=== PATIENT | female | born 1935 ===

== ENCOUNTER 2021-12-22 16:11 | Inpatient (IN) ==
[2021-12-22] MEDS ORDERED: traZODone HCL 50 MG TABLET PO PRN (17:28)
[2021-12-22] MEDS ORDERED: HYDROmorphone 1 MG/ML SYRINGE IV PRN (17:28)
[2021-12-22] MEDS ORDERED: oxyCODONE HCL 5 MG TABLET PO PRN (17:28)
[2021-12-22] MEDS ORDERED: ONDANSETRON 4 MG/2 ML VIAL IV PRN (17:28)
[2021-12-22] MEDS ORDERED: IPRATROPIUM/ALBUTEROL 3 ML AMPUL.NEB NEB PRN ×2 (17:28→22:22)
[2021-12-22] MEDS ORDERED: ACETAMINOPHEN 325 MG TABLET PO PRN (17:28)
[2021-12-22] MEDS ORDERED: hydrALAZINE 20 MG/ML VIAL IV PRN (17:32)
--- NOTE | 2021-12-22 17:42 | Internal Med History&Physical ---
HPI History of Present Illness Patient information: Note initiated : 12/22/21 at 5:32 pm Service Date, if different from initiated Date: [] Patient: Smita Munson 86 y/o F admitted on 12/22/21 for Left Femur Fracture. Chief Complaint: [fall] Chief complaint: fall History of present illness: Ms. Munson is a 86 year old F history of ostial myelitis, presenting with 4 with a left hip fracture. Earlier this afternoon when she was doing yard work in her garden, she misstepped and lost her balance and fell landing forward. She denies any chest pain or shortness of breath or palpitations. She denies any loss of consciousness. She is complaining of 6 out of 10, constant, sharp and throbbing pain of her left knee with radiations to the left thigh. Patient is not on any anticoagulants or antiplatelets. She was brought to outside ER where imaging was performed and suggested a left hip fracture. Admission request was made due to bed availability and availability of orthopedic surgeons. Patient will be taken to the OR by Dr. Munson orthopedic surgeons later this evening. Constitutional Constitutional: Absent chills, excessive sweating, fatigue, fever(s) or weakness EENT Eyes: Absent blurry vision, change in vision, loss of vision or other visual disturbances Ears: Absent decreased hearing or tinnitus Nose, mouth and throat: Absent abnormal hearing, dry mouth, headache(s), nasal congestion or sore throat Cardiovascular Cardiovascular: Absent chest pain, chest pain at rest, edema, irregular heart rhythm or palpatations Respiratory Respiratory: Absent cough, dyspnea or wheezing Gastrointestinal Gastrointestinal: Absent abdominal pain, constipation, diarrhea, nausea or vomiting Musculoskeletal Musculoskeletal: Absent back pain, deformity, limited range of motion, muscle cramps, muscle weakness or numbness Additional comments: Left thigh and knee pain Integumentary Integumentary: Absent lesions, rash or wounds Neurological Neurological: Absent focal weakness, headache(s) or numbness Psychiatric Psychiatric: Absent anxiety, depression or hallucinations PFSH PFSH All Active Problems (Updated 12/22/21 @ 17:41 by Rudy Camarillo MD) Osteoarthritis (Acute) Closed left hip fracture (Acute) MEDS/ALLERGIES Home Medications and Allergies Allergies Allergy/AdvReac Type Severity Reaction Status Date / Time diazepam [From Valium] Allergy Severe Difficulty Verified 12/22/21 17:29 Breathing ofloxacin [From Floxin] Allergy Severe Difficulty Verified 12/22/21 17:29 Breathing Penicillins AdvReac Intermediate Rash Verified 12/22/21 17:21 EXAM Constitutional Vitals: Temp Pulse Resp BP Pulse Ox 35.9 C L 95 H 14 144/78 95 12/22/21 17:22 12/22/21 17:22 12/22/21 17:22 12/22/21 17:22 12/22/21 17:22 General appearance: cooperative and no acute distress Head Head exam: Present atraumatic and normocephalic Eye Eye exam: Present EOMI and PERRL ENT ENT exam: Present mucous membranes moist, normal exam and normal external ear exam Neck Neck exam: Present normal inspection; Absent lymphadenopathy, tenderness or thyromegaly Respiratory Respiratory exam: Absent accessory muscle use, respiratory distress or wheezes Cardiovascular Cardiovascular exam: Present normal rate and rhythm; Absent JVD GI/Abdominal GI/Abdominal exam: Present normal bowel sounds and soft; Absent organomegaly or tenderness Extremities Exam Extremities exam: Present normal capillary refill and tenderness; Absent full ROM or normal inspection Additional comments: Left thigh and knee tenderness to palpation Active and passive ROMs limited by pain Neurological Exam Neurological exam: Present alert, CN II-XII intact and oriented X3; Absent motor sensory deficit Psychiatric Psychiatric exam: Present normal affect and normal mood; Absent anxious or depressed Skin Skin exam: Present dry and intact A/P Assessment and plan (1) Closed left hip fracture: Status: Acute (2) Osteoarthritis: Status: Acute Narrative A/P Narrative: Assessment and Plans: 1. Left hip fracture, closed, initial encounter: Inpatient med surg Consult orthopedic surgeon Dr. Munson for surgical fixation, OR time tonight NPO with IV fluid for now No anticoagulation BEFORE surgery; anticoagulation after surgery when cleared by surgeon Bedrest Oxycodone PRN moderate pain Dilaudid IV PRN severe pain Physical therapy 2. h/o osteoarthritis: Oxycodone PRN moderate pain Dilaudid IV PRN severe pain Physical therapy GI ppx: not currently indicated DVT ppx: SCDs Code status: Full Prognosis: stable Disposition: Inpatient med surg; PT Time Spent With Patient Time: Total time spent is greater than 50% in coordination of care (as documented) at patient's floor/unit and/or counseling patient: Total time spent with greater than 50% in coordination of care (as documented) at patient's floor/unit and/or counseling patient:: 50 - 70 minutes
--- NOTE | 2021-12-22 18:14 | Orthopedic History & Physical ---
HPI History of Present Illness Patient information: Note initiated : 12/22/21 at 6:08 pm Service Date, if different from initiated Date: [] Patient: Smita Munson 86 y/o F admitted on 12/22/21 for Left Femur Fracture. Chief Complaint: [Left knee pain status post ground level mechanical fall] Chief complaint: Left knee pain status post ground level mechanical fall History of present illness: Ms. Munson is a 86 year old Female who was working in the garden outside her [place] home when she stumbled on some uneven tile and suffered a witnessed ground level mechanical fall. Her son who also lives on the property was able to come to her aid. Patient denies head strike or loss of consciousness during the event and denies pain at any location other than her left knee. Patient was transported to [facility] where imaging revealed a fracture of the left distal femur patient was placed in a knee immobilizer and Dr. Munson orthopedic surgeon was consulted for treatment options patient was subsequently transferred to [facility] For treatment of her fracture. Patient lives in her own home with her son and his fiance who also live on the property in a mobile home. Allergies: Floxin, Valium and penicillin. Past medical history includes history of breast and colon cancer, pulmonary embolism, hypertension, hypothyroidism Patient is a former smoker of 2.5 packs per day, who quit more than 30 years ago Laboratory workup obtained at [facility] Including CBC CMP and coagulation panel is within normal limits with the exception of being when 19, glucose of 129, Calcium of 8.4 Current medications include meloxicam, levothyroxine and a multivitamin. Review of Systems All systems: reviewed and no additional remarkable complaints except as stated PFSH PFSH All Active Problems (Updated 12/22/21 @ 17:41 by Rudy Camarillo MD) Osteoarthritis (Acute) Closed left hip fracture (Acute) MEDS/ALLERGIES Home Medications and Allergies Home Medications Medication Instructions Recorded Confirmed Type Vision Clear 1 tab PO DAILY 12/22/21 12/22/21 History levothyroxine 88 mcg PO DAILY 12/22/21 12/22/21 History meloxicam 15 mg PO DAILY 12/22/21 12/22/21 History Allergies Allergy/AdvReac Type Severity Reaction Status Date / Time diazepam [From Valium] Allergy Severe Difficulty Verified 12/22/21 17:29 Breathing ofloxacin [From Floxin] Allergy Severe Difficulty Verified 12/22/21 17:29 Breathing Penicillins AdvReac Intermediate Rash Verified 12/22/21 17:21 Physical Examination Narrative Narrative: Narrative: Results Labs Labs: All other labs normal. A/P Narrative A/P Narrative: Assessment: A 86-year-old female who suffered a witnessed ground level mechanical fall sustaining a left distal femur fracture. On exam patients even been no acute distress lungs are equal and clear bilaterally heart normal rate and rhythm nonlabored, pupils are PERRLA with intact ocular motion, mucous membranes are moist, head, neck, chest, Bilateral upper extremities, abdomen and bilateral hips , Right lower extremity and pelvis are nontender to palpation. Both lower extremities are warm, well perfused and neurovascularly intact with intact ankle motion to testing. At the left lower extremity about the left knee there is tenderness palpation and with any range of motion. Options were presented to the patient including surgical and nonsurgical options. Nonsurgical option consisting of bracing, pain medication there is a risk of increased pain, increased injury to adjacent structures including nerves and blood vessels, loss of range of motion and mobility. Surgical option consisting of open reduction internal fixation of her left displaced distal femur fracture via plate and screw fixation. At this time patient is interested in surgery. Plan: Plan is for open reduction internal fixation via plate and screw fixation of the left displaced distal femur fracture To take place him in emergently with Dr. Munson orthopedic surgeon and Randy HERNDON. Surgical risks were explained to the patient including but not limited to: Pain, bleeding, infection, injury to adjacent structures including nerves and blood vessels, need for further surgery, implant failure, stroke risk, cardiac complications including heart attack or ID, Pulmonary complications including pneumonia or pulmonary embolism Anesthesia reactions and . Patient understands these risks and wishes to proceed with surgery. Time Spent With Patient Time: Total time spent is greater than 50% in coordination of care (as documented) at patient's floor/unit and/or counseling patient:
[2021-12-22] MEDS ORDERED: ceFAZolin 1 GM VIAL ONE (19:13)
[2021-12-22] MEDS ORDERED: ceFAZolin 1 GM VIAL IV SCH (19:15)
[2021-12-22] MEDS ORDERED: ACETAMINOPHEN 1,000 MG/100 ML BAG IV ONE ×2 (19:24→22:22)
[2021-12-22] MEDS ORDERED: LIDOCAINE HCL/PF 100 MG/5 ML SYRINGE IV ONE (19:30)
[2021-12-22] MEDS ORDERED: fentaNYL 100 MCG/2 ML VIAL IV ONE (19:30)
[2021-12-22] MEDS ORDERED: KETAMINE 50 MG/ML Syringe (ANEST) IV ONE (19:30)
[2021-12-22] MEDS ORDERED: ROCURONIUM 10 MG/ML ML IV ONE (19:30)
[2021-12-22] MEDS ORDERED: PROPOFOL 200 MG/20 ML VIAL IV ONE (19:30)
[2021-12-22] MEDS ORDERED: GLYCOPYRROLATE 0.2 MG/ML VIAL IV ONE (19:30)
[2021-12-22] MEDS ORDERED: MAGNESIUM SULFATE 2 GM/50 ML BAG IV ONE (19:30)
[2021-12-22] MEDS ORDERED: ONDANSETRON 4 MG/2 ML VIAL ONE (19:30)
[2021-12-22] MEDS ORDERED: PHENYLephrine 1 MG/10 ML SYRINGE (ANEST) ONE (19:30)
[2021-12-22] MEDS ORDERED: SUGAMMADEX SODIUM 200 MG/2 ML VIAL IV ONE (19:30)
[2021-12-22] MEDS ORDERED: TRANEXAMIC ACID 1,000 MG/10 ML VIAL ONE ×2 (19:30→23:33)
[2021-12-22] MEDS ORDERED: HYDROmorphone 1 MG/ML SYRINGE ONE (19:30)
[2021-12-22] MEDS ORDERED: DEXAMETHASONE 10 MG/ML VIAL ONE (19:30)
[2021-12-22] MEDS ORDERED: ePHEDrine 50 MG/5 ML SYRINGE (ANEST) IV ONE (19:30)
[2021-12-22] MEDS ORDERED: NALOXONE HCL 0.4 MG/ML VIAL IV PRN (22:22)
[2021-12-22] MEDS ORDERED: HYDROmorphone 0.5 MG/0.5 ML SYRINGE IV PRN (22:22)
[2021-12-22] MEDS ORDERED: fentaNYL 100 MCG/2 ML VIAL IV PRN (22:22)
[2021-12-22] MEDS ORDERED: LACTATED RINGERS 250 ML IV PRN (22:22)
[2021-12-22] MEDS ORDERED: METHOCARBAMOL 1,000 MG/10 ML VIAL IV PRN (22:22)
[2021-12-22] MEDS ORDERED: LACTATED RINGERS 1,000 ML IV SCH (22:30)
--- NOTE | 2021-12-22 22:51 | Brief Operative Note ---
Brief Operative Note Date of procedure: 12/22/21 Pre-op diagnosis: comminuted left distal femur supracondylar fracture Post-op diagnosis: same Procedure: ORIF left distal femur supracondylar fracture Grafts/Implants: Yes Anesthesia: GETA Findings: comminuted fracture Complications: none Surgeon: [employer] Counselor: Master Jaimes Estimated blood loss (cc): 400 Tourniquet Time (Minutes): 0 Specimens Removed/Pathology: none sent Condition: stable Disposition: PACU
[2021-12-22] MEDS ORDERED: TRANEXAMIC ACID 1,000 MG/10 ML VIAL IV ONE (22:57)
[2021-12-22] MEDS ORDERED: ceFAZolin 2 GM in DEXTROSE 5% IN WATER 50 ML IV SCH (23:15)
[2021-12-22] MEDS ORDERED: METHOCARBAMOL 1,000 MG/10 ML VIAL ONE (23:34)
[2021-12-22] MEDS: 0.9 % SODIUM CHLORIDE 1,000 ML IV SCH (23:43)
[2021-12-23] MEDS: SENNOSIDES 1 TABLET PO SCH ×2 (00:17→20:29)
[2021-12-23] MEDS: DOCUSATE SODIUM 100 MG CAPSULE PO SCH ×3 (00:17→20:29)
[2021-12-23] MEDS: 0.9 % SODIUM CHLORIDE 10 ML SYRINGE IV SCH ×4 (00:17→20:30)
[2021-12-23] MEDS: LACTATED RINGERS 1,000 ML IV SCH ×2 (00:18→12:53)
--- NOTE | 2021-12-23 03:08 | XRay Report ---
CLINICAL INFORMATION: ORIF distal femoral fracture COMPARISON: None FINDINGS: Obliquely oriented comminuted fracture has been reduced to anatomic alignment and is transfixed by lateral plate and screws. Severe patellofemoral and tibiofemoral degeneration noted. There is mild left hip degeneration as well. Soft tissue swelling as expected. IMPRESSION: ORIF of comminuted oblique fracture distal femoral diaphysis. Anatomic alignment Interpreted and Authenticated by: Christian Ren 12/23/21
--- NOTE | 2021-12-23 03:09 | XRay Report ---
CLINICAL INFORMATION: ORIF distal femoral fracture COMPARISON: None FINDINGS: Intraoperative films show obliquely oriented comminuted fracture has been reduced to anatomic alignment and is transfixed by lateral plate and screws. Severe patellofemoral and tibiofemoral degeneration noted. Soft tissue swelling as expected. IMPRESSION: ORIF of comminuted oblique fracture distal femoral diaphysis. Anatomic alignment. Total fluoroscopy time 2.9 minutes Interpreted and Authenticated by: Christian Ren 12/23/21
[2021-12-23] MEDS: 0.9 % SODIUM CHLORIDE 1,000 ML IV SCH ×4 (05:16→18:58)
[2021-12-23] MEDS ORDERED: METHOCARBAMOL 500 MG TABLET PO PRN (05:49)
--- NOTE | 2021-12-23 06:18 | Orthopedic Progress Note ---
SUBJECTIVE Subjective Patient information: Note initiated : 12/23/21 at 6:14 am Service Date, if different from initiated Date: [] Patient: Smita Munson 86 y/o F admitted on 12/22/21 for Left Femur Fracture. Chief Complaint: [no issues overnight, pain controlled.] Constitutional Vitals: Vital Signs Temp Pulse Resp BP Pulse Ox 98.3 F 83 12 107/58 95 12/23/21 03:11 12/23/21 03:11 12/23/21 03:11 12/23/21 03:11 12/23/21 03:11 Period Temp Pulse Resp BP Sys/Keys Pulse Ox Last 24 Hr 96.7 F-98.5 F 77-100 10-21 103-144/52-80 87-100 Intake and Output 12/22/21 12/23/21 12/23/21 21:59 05:59 13:59 Intake Total 3150 Output Total 1950 Balance 1200 Weight 188 lb Intake & Output: Intake & Output 12/22/21 12/23/21 12/23/21 21:59 05:59 13:59 Intake Total 3150 Output Total 1950 Balance 1200 Weight 188 lb Intake: IV 150 Ancef 2 gm In Dextrose 5% in 50 Water 50 ml @ 100 mls/hr IV Q8H [facility] Rx#:[id number] IV - Manual Only 3000 Output: Urine Catheter Amount 1450 Estimated Blood Loss 500 Other: Urine Appearance Clear Uretheral (Sanches) Clear Clear Urine Color Straw Uretheral (Sanches) Bright Yellow Bright Yellow Urine Odor Normal Additional findings Additional findings: general: alert oriented and appropriate -left thigh: dressing clean, dry and intact OBJ DATA Labs CBC & Chem 7: 12/23/21 05:13 12/23/21 05:13 Meds: Medications Acetaminophen (Acetaminophen 325 Mg Tablet) 650 mg PO Q6HP PRN; Protocol PRN Reason: Per Pain Protocol/Fever > 101 Hydrocodone Bitart/Acetaminophen (Hydrocodone/Apap 5/325mg Tablet) 0 tab PO Q4HP PRN; Protocol PRN Reason: Per Pain Protocol Albuterol/Ipratropium (Ipratropium/Albuterol 3 Ml Ampul.Neb) 3 ml NEB Q4HRT PRN PRN Reason: Wheezing Apixaban (Apixaban 5 Mg Tablet) 2.5 mg PO BID [facility] Cefazolin Sodium (Cefazolin 1 Gm Vial) 2 gm IV PREOP [facility]; Protocol Last Admin: 12/22/21 19:09 Dose: 2 gm Documented by: Cefazolin Sodium (Cefazolin 1 Gm Vial) 2 gm IV TODAY@0800 [facility] Stop: 12/23/21 10:00 Docusate Sodium (Docusate Sodium 100 Mg Capsule) 100 mg PO BID [facility] Last Admin: 12/23/21 00:17 Dose: Not Given Documented by: Hydralazine HCl (Hydralazine 20 Mg/Ml Vial) 10 mg IV Q4-6HP PRN PRN Reason: Hypertension Hydromorphone HCl (Hydromorphone 1 Mg/Ml Syringe) 1 mg IV Q2HP PRN; Protocol PRN Reason: Per Pain Protocol Sodium Chloride (Sodium Chloride 0.9%) 1,000 mls @ 100 mls/hr IV .Q10H [facility] Last Admin: 12/23/21 05:16 Dose: Not Given Documented by: Lactated Ringer's (Lactated Ringers) 1,000 mls @ 75 mls/hr IV .[id number] [facility] Last Admin: 12/23/21 00:18 Dose: Not Given Documented by: Methocarbamol (Methocarbamol 500 Mg Tablet) 500 mg PO Q6HP PRN PRN Reason: Muscle Spasm Ondansetron HCl (Ondansetron 4 Mg/2 Ml Vial) 4 mg IV Q6HP PRN PRN Reason: Nausea And Vomiting Oxycodone HCl (Oxycodone Hcl 5 Mg Tablet) 10 mg PO Q4HP PRN; Protocol PRN Reason: Per Pain Protocol Senna (Sennosides 1 Tablet) 2 tab PO HS [facility] Last Admin: 12/23/21 00:17 Dose: Not Given Documented by: Sodium Chloride (0.9 % Sodium Chloride 10 Ml Syringe) 10 ml IV Q8 [facility] Last Admin: 12/23/21 05:16 Dose: Not Given Documented by: Trazodone HCl (Trazodone Hcl 50 Mg Tablet) 25 mg PO HSP PRN PRN Reason: Insomnia A/P Assessment and plan (1) Supracondylar fracture of femur: Assessment and plan: POD 1 s/p orif left distal femur supracondylar femur fracture -- foot flat/toe touch weight bearing only x6 weeks. ROM 0-90 degrees ----PT/OT today -- oral pain meds -- prophy: IS, start eliquis tonight, mobilization, foot pumps -- Dispo: pending Status: Acute Time Spent With Patient Time: Total time spent is greater than 50% in coordination of care (as documented) at patient's floor/unit and/or counseling patient:
[2021-12-23 07:17] LABS: Basophils # (Auto) 0.03 K/mcL (0.00-0.30); Basophils % (Auto) 0.2 % (0.0-2.0); Eosinophils # (Auto) 0 K/mcL (0.00-0.70); Eosinophils % (Auto) 0 % (0.0-7.0); Hematocrit 37.2 % (34.1-44.9); Hemoglobin 11.4 g/dL (11.2-15.7); Lymphocytes # (Auto) 0.64 K/mcL (1.50-4.80); Mean Cell Volume 96.9 fL (80.0-100.0); Mean Corpuscular HGB Conc 30.6 g/dL (31.0-36.0); Monocytes # (Auto) 0.97 K/mcL (0.10-0.90); Neutrophils % (Auto) 89.8 % (38.0-78.0); Platelet Count 171 K/mcL (140-440); RBC 3.84 M/mcL (3.59-5.38); Red Cell Distribution Width 13.4 % (11.5-14.5); WBC 16.2 K/mcL (4.5-11.0)
[2021-12-23 07:41] LABS: Blood Urea Nitrogen 12 mg/dL (8-23); Calcium 8.2 mg/dL (8.6-10.4); Carbon Dioxide 24 mmol/L (22-30); Chloride 106 mmol/L (96-108); Glomerular Filtration Rate 77; Glucose 168 mg/dL (70-105)
[2021-12-23] MEDS ORDERED: ceFAZolin 1 GM VIAL IV SCH (08:00)
--- NOTE | 2021-12-23 08:23 | Internal Med Progress Note ---
SUBJECTIVE Subjective Patient information: Note initiated : 12/23/21 at 8:20 am Service Date, if different from initiated Date: [] Patient: Smita Munson 86 y/o F admitted on 12/22/21 for Left Femur Fracture. Chief Complaint: [] Interval history: History of present illness: Ms. Munson is a 86 year old F history of ostial myelitis, presenting with 4 with a left hip fracture. Earlier this afternoon when she was doing yard work in her garden, she misstepped and lost her balance and fell landing forward. She denies any chest pain or shortness of breath or palpitations. She denies any loss of consciousness. She is complaining of 6 out of 10, constant, sharp and throbbing pain of her left knee with radiations to the left thigh. Patient is not on any anticoagulants or antiplatelets. She was brought to outside ER where imaging was performed and suggested a left hip fracture. Admission request was made due to bed availability and availability of orthopedic surgeons. Patient will be taken to the OR by Dr. Munson orthopedic surgeons later this evening. 12/23: s/p left hip ORIF by Dr. Munson last night, patient tolerated the surgery well. She currently denies any pain. She has been passing gas but denies any bowel movement so far. Pending evaluation and treatment with physical therapy. Restart Elijens toncaren. Constitutional Vitals: Vital Signs Temp Pulse Resp BP Pulse Ox 37.0 C 90 19 125/63 98 12/23/21 07:12 12/23/21 07:12 12/23/21 07:12 12/23/21 07:12 12/23/21 07:12 Period Temp Pulse Resp BP Sys/Keys Pulse Ox Last 24 Hr 35.9 C-37.0 C 77-100 10-21 103-144/52-80 87-100 Intake and Output 12/22/21 12/23/21 12/23/21 21:59 05:59 13:59 Intake Total 3150 828 Output Total 1950 Balance 1200 828 Weight 85.275 kg Intake & Output: Intake & Output 12/22/21 12/23/21 12/23/21 21:59 05:59 13:59 Intake Total 3150 828 Output Total 1950 Balance 1200 828 Weight 85.275 kg Intake: IV 150 828 Sodium Chloride 0.9% 1,000 ml @ 828 100 mls/hr IV .Q10H [facility] Rx#: [id number] Ancef 2 gm In Dextrose 5% in 50 Water 50 ml @ 100 mls/hr IV Q8H [facility] Rx#:[id number] IV - Manual Only 3000 Output: Urine Catheter Amount 1450 Estimated Blood Loss 500 Other: Urine Appearance Clear Uretheral ([place]anches) Clear Clear Urine Color Straw Uretheral ([place]anches) Bright Yellow Bright Yellow Urine Odor Normal Head Head exam: Present atraumatic and normal inspection Eye Eye exam: Present normal appearance ENT ENT exam: Present mucous membranes moist, normal exam and normal external ear exam Neck Neck exam: Present normal inspection Respiratory Respiratory exam: Present normal respiratory exam Cardiovascular Cardiovascular exam: Present normal rate and rhythm GI/Abdominal GI/Abdominal exam: Present normal bowel sounds Extremities Exam Extremities exam: Absent full ROM or normal inspection Additional comments: Left leg covered by surgical dressing and soft cast. Back Exam Back exam: Present normal inspection Neurological Exam Neurological exam: Present alert and oriented X3 Skin Skin exam: Present intact and warm OBJ DATA Labs CBC & Chem 7: 12/23/21 05:13 12/23/21 05:13 Labs: Abnormal Lab Results 12/23/21 12/23/21 05:13 05:13 WBC 16.2 H MCHC 30.6 L MPV 11.0 H Neut % (Auto) 89.8 H Lymph % (Auto) 4.0 L Lymph # (Auto) 0.64 L Cowley # (Auto) 0.97 H Absolute Neutrophils 14.56 H Glucose 168 H Calcium 8.2 L Meds: Medications Acetaminophen (Acetaminophen 325 Mg Tablet) 650 mg PO Q6HP PRN; Protocol PRN Reason: Per Pain Protocol/Fever > 101 Hydrocodone Bitart/Acetaminophen (Hydrocodone/Apap 5/325mg Tablet) 0 tab PO Q4HP PRN; Protocol PRN Reason: Per Pain Protocol Albuterol/Ipratropium (Ipratropium/Albuterol 3 Ml Ampul.Neb) 3 ml NEB Q4HRT PRN PRN Reason: Wheezing Apixaban (Apixaban 5 Mg Tablet) 2.5 mg PO BID [facility] Cefazolin Sodium (Cefazolin 1 Gm Vial) 2 gm IV TODAY@0800 [facility] Stop: 12/23/21 10:00 Docusate Sodium (Docusate Sodium 100 Mg Capsule) 100 mg PO BID [facility] Last Admin: 12/23/21 08:01 Dose: 100 mg Documented by: Hydralazine HCl (Hydralazine 20 Mg/Ml Vial) 10 mg IV Q4-6HP PRN PRN Reason: Hypertension Hydromorphone HCl (Hydromorphone 1 Mg/Ml Syringe) 1 mg IV Q2HP PRN; Protocol PRN Reason: Per Pain Protocol Sodium Chloride (Sodium Chloride 0.9%) 1,000 mls @ 100 mls/hr IV .Q10H [facility] Last Admin: 12/23/21 08:00 Dose: 100 mls/hr Documented by: Lactated Ringer's (Lactated Ringers) 1,000 mls @ 75 mls/hr IV .[id number] [facility] Last Admin: 12/23/21 00:18 Dose: Not Given Documented by: Methocarbamol (Methocarbamol 500 Mg Tablet) 500 mg PO Q6HP PRN PRN Reason: Muscle Spasm Ondansetron HCl (Ondansetron 4 Mg/2 Ml Vial) 4 mg IV Q6HP PRN PRN Reason: Nausea And Vomiting Senna (Sennosides 1 Tablet) 2 tab PO HS [facility] Last Admin: 12/23/21 00:17 Dose: Not Given Documented by: Sodium Chloride (0.9 % Sodium Chloride 10 Ml Syringe) 10 ml IV Q8 [facility] Last Admin: 12/23/21 05:16 Dose: Not Given Documented by: Trazodone HCl (Trazodone Hcl 50 Mg Tablet) 25 mg PO HSP PRN PRN Reason: Insomnia A/P Assessment and plan (1) Closed left hip fracture: Status: Acute (2) Osteoarthritis: Status: Acute (3) Hypothyroidism: Status: Acute Narrative A/P Narrative: Assessment and Plans: 1. Left hip fracture, closed, initial encounter: Inpatient med surg s/p left hip ORIF by Dr. Munson 12/22 Start Eliquis tonight [place] PRN moderate pain Dilaudid IV PRN severe pain Physical therapy 2. h/o osteoarthritis: Oxycodone PRN moderate pain Dilaudid IV PRN severe pain Physical therapy 3. Hypothyroidism: Continue thyroid replacement therapy GI ppx: not currently indicated DVT ppx: Eliquis Code status: Full Prognosis: stable Disposition: Inpatient med surg; PT Time Spent With Patient Time: Total time spent is greater than 50% in coordination of care (as documented) at patient's floor/unit and/or counseling patient: Total time spent with greater than 50% in coordination of care (as documented) at patient's floor/unit and/or counseling patient:: 35 - 50 minutes QUALITY VTE Deep Vein Thrombosis/Pulmonary Embolism Present on Admission: No
--- NOTE | 2021-12-23 09:02 | Operative Note ---
DATE OF OPERATION: 12/22/2021 DATE OF PROCEDURE: 12/22/2021 PREOPERATIVE DIAGNOSIS: Left distal supracondylar femur fracture. POSTOPERATIVE DIAGNOSIS: Left distal supracondylar femur fracture. PROCEDURE PERFORMED: Open reduction and internal fixation of left supracondylar femur fracture. SURGEON: Mac Munson MD CHIEF PORT DIRECTOR: Master Jaimes PA-C. This provider's expertise and technical skill were required throughout the case. The PA assisted with preoperative coordination, intraoperative retraction, wound closure, and dressing and splint application, as well as postoperative documentation and care coordination. ANESTHESIA: General. INTRAVENOUS FLUIDS: 2 liters lactated Ringer's. ESTIMATED BLOOD LOSS: 400 mL. ANTIBIOTICS: 2 grams Ancef. INTRAOPERATIVE COMPLICATIONS: None apparent. PATHOLOGY/LAB: None. IMPLANTS: A 10-hole Synthes distal femoral locking plate. INDICATIONS FOR PROCEDURE: The patient is an 86-year-old female who had a ground level fall while gardening today resulting in a displaced distal femur fracture. She was seen in an outside facility and subsequently transferred here for further evaluation and treatment. Upon presentation, she only complained of left femur pain. No numbness or tingling in the extremity. I discussed the diagnosis with her as well as treatment options with recommendation for operative treatment given that it will help restore stability as well as improve her function and pain. After discussion, she understands and wants to proceed in that fashion. DESCRIPTION OF PROCEDURE: The patient was met in the preoperative holding area where site was verified as marked with the patient's input. She was then brought to the operating room where she underwent successful anesthesia, her left lower extremity was wiped down with chlorhexidine wipes and then prepped and draped in the usual sterile fashion with ChloraPrep. Surgical timeout was performed to verify the patient's identity, correct procedure being performed, and correct extremity being operated on. Everybody was in agreement. I created approximately a 15 cm incision over the distal femur extending proximally from just distal to the joint line center of the IT band. The skin was sharply incised. Hemostasis was obtained with electrocautery device down to the IT band. The IT band was identified and incised in midline and then placed a Gelpi deep to expose the vastus lateralis proximally and joint capsule distally. I did take care not to compromise the joint capsule distally. The fractured hematoma was easily identified and evacuated and irrigated with normal saline. The fracture itself was very comminuted and could restore alignment with direct pressure. Given that, I did place a 10-hole distal femur plate along the lateral femur. Initially, I compressed the plate to bone proximally with a whirlybird device. The fracture was relatively mobile. We subsequently placed a nonlocking screw in the central hole distally, viewed on multiple radiographs, both on AP and lateral. I thought this was adequate and I then placed an additional screw proximally to compress the plate to the bone, placed two additional screws distally and with further review, the fracture was in significantly flexed deformity. Given that, I did place a bone reduction clamp at the level of the fracture and removed the screw proximally and the plate. I did extend the distal fragment through the plate pivoting on the central screw in the shaft and then compressed the screw back down to the plate. Subsequently, we placed two additional screws in the shaft and filled the distal screws with locking screws. In doing so, the plate, most proximal portion, was a bit posterior and I placed a unicortical screw for a total of four locking screws proximally and one nonlocking screw and distally, placed all the distal locking screws. Overall alignment of the fracture was in a bit of flexion at the fracture site but given the amount of comminution it was very difficult as the was a bit flexed; however, felt it was adequate given the comminution and bridged the comminution itself. 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 Once this was complete, the wound was copiously irrigated. I placed vancomycin powder deep in the wound, multiple fluoroscopy shots were taken as well to ensure adequate screw placement. Screws in the shaft were a bit long; however, I felt this was most appropriate given the soft bone that she does have and left these as is. The IT band was closed with Stratafix in running fashion, subcutaneous tissue was closed in a layered fashion to the deep fat layer with Stratafix, subcutaneous tissue with 3-0 Vicryl, and skin closed with deanna. The proximal screws had been placed percutaneously and these were closed with deanna as well. The skin was then cleaned and dried. We placed Xeroform, fluffs, Webril and Luis wrap and placed into a knee immobilizer. The patient awoke from anesthesia and was transferred to PACU in stable condition. POSTOPERATIVE PLAN: The patient will be admitted to the floor for postoperative recovery. She will be foot-flat weightbearing for the next 4-6 weeks. [id number] Job ID: [id number] Doc ID: [id number] Mac Munson MD [facility]
[2021-12-23] MEDS: MELOXICAM 7.5 MG TABLET PO SCH (09:06)
[2021-12-23] MEDS: VIT A,C & E/LUTEIN/MINERALS TABLET PO SCH (09:06)
[2021-12-23] MEDS: LEVOTHYROXINE 88 MCG TABLET PO SCH (09:06)
--- NOTE | 2021-12-23 13:21 | Internal Med Progress Note ---
SUBJECTIVE Subjective Patient information: Note initiated : 12/23/21 at 1:17 pm Service Date, if different from initiated Date: [] Patient: Smita Munson 86 y/o F admitted on 12/22/21 for Left Femur Fracture. Chief Complaint: [] Interval history: History of present illness: Ms. Munson is a 86 year old F history of ostial myelitis, presenting with 4 with a left hip fracture. Earlier this afternoon when she was doing yard work in her garden, she misstepped and lost her balance and fell landing forward. She denies any chest pain or shortness of breath or palpitations. She denies any loss of consciousness. She is complaining of 6 out of 10, constant, sharp and throbbing pain of her left knee with radiations to the left thigh. Patient is not on any anticoagulants or antiplatelets. She was brought to outside ER where imaging was performed and suggested a left hip fracture. Admission request was made due to bed availability and availability of orthopedic surgeons. Patient will be taken to the OR by Dr. Munson orthopedic surgeons later this evening. 12/23: s/p left hip ORIF by Dr. Munson last night, patient tolerated the surgery well. She currently denies any pain. She has been passing gas but denies any bowel movement so far. Pending evaluation and treatment with physical therapy. Restart Eliquis toncaren. Constitutional Vitals: Vital Signs Temp Pulse Resp BP Pulse Ox 99.4 F H 95 H 18 105/60 95 12/23/21 11:46 12/23/21 11:46 12/23/21 11:46 12/23/21 11:46 12/23/21 11:46 Period Temp Pulse Resp BP Sys/Keys Pulse Ox Last 24 Hr 96.7 F-99.4 F 77-100 10-21 103-144/52-80 87-100 Intake and Output 12/22/21 12/23/21 12/23/21 21:59 05:59 13:59 Intake Total 3150 828 Output Total 1950 Balance 1200 828 Weight 85.275 kg Intake & Output: Intake & Output 12/22/21 12/23/21 12/23/21 21:59 05:59 13:59 Intake Total 3150 828 Output Total 1950 Balance 1200 828 Weight 85.275 kg Intake: IV 150 828 Sodium Chloride 0.9% 1,000 ml @ 828 100 mls/hr IV .Q10H [facility] Rx#: [id number] Ancef 2 gm In Dextrose 5% in 50 Water 50 ml @ 100 mls/hr IV Q8H [facility] Rx#:[id number] IV - Manual Only 3000 Output: Urine Catheter Amount 1450 Estimated Blood Loss 500 Other: Urine Appearance Clear Uretheral ([place]) Clear Clear Urine Color Straw Uretheral ([place]) Bright Yellow Bright Yellow Urine Odor Normal Exam: General: Alert, Awake, No acute Distress Eyes/N/T: EOMI, Head/Neck: neck supple, CV: RRR, No murmurs, Pulm: Clear b/l, no wheezing/rhonchi/rales Abd: soft, nontender, +BS x4 Ext: no clubbing/cyanosis/edema Neuro: Alert, no focal deficits, moves all extremities, Skin: warm/dry OBJ DATA Labs CBC & Chem 7: 12/23/21 05:13 12/23/21 05:13 Labs: Abnormal Lab Results 12/23/21 12/23/21 05:13 05:13 WBC 16.2 H MCHC 30.6 L MPV 11.0 H Neut % (Auto) 89.8 H Lymph % (Auto) 4.0 L Lymph # (Auto) 0.64 L [place] # (Auto) 0.97 H Absolute Neutrophils 14.56 H Glucose 168 H Calcium 8.2 L Meds: Medications Acetaminophen (Acetaminophen 325 Mg Tablet) 650 mg PO Q6HP PRN; Protocol PRN Reason: Per Pain Protocol/Fever > 101 Hydrocodone Bitart/Acetaminophen (Hydrocodone/Apap 5/325mg Tablet) 0 tab PO Q4HP PRN; Protocol PRN Reason: Per Pain Protocol Albuterol/Ipratropium (Ipratropium/Albuterol 3 Ml Ampul.Neb) 3 ml NEB Q4HRT PRN PRN Reason: Wheezing Apixaban (Apixaban 5 Mg Tablet) 2.5 mg PO BID [facility] Docusate Sodium (Docusate Sodium 100 Mg Capsule) 100 mg PO BID [facility] Last Admin: 12/23/21 08:01 Dose: 100 mg Documented by: Hydralazine HCl (Hydralazine 20 Mg/Ml Vial) 10 mg IV Q4-6HP PRN PRN Reason: Hypertension Hydromorphone HCl (Hydromorphone 1 Mg/Ml Syringe) 1 mg IV Q2HP PRN; Protocol PRN Reason: Per Pain Protocol Sodium Chloride (Sodium Chloride 0.9%) 1,000 mls @ 100 mls/hr IV .Q10H [facility] Last Admin: 12/23/21 08:00 Dose: 100 mls/hr Documented by: Lactated Ringer's (Lactated Ringers) 1,000 mls @ 75 mls/hr IV .[id number] [facility] Last Admin: 12/23/21 12:53 Dose: Not Given Documented by: Levothyroxine Sodium (Levothyroxine 88 Mcg Tablet) 88 mcg PO QAMAC [facility] Last Admin: 12/23/21 09:06 Dose: 88 mcg Documented by: Meloxicam (Meloxicam 7.5 Mg Tablet) 15 mg PO DAILY [facility] Last Admin: 12/23/21 09:06 Dose: 15 mg Documented by: Methocarbamol (Methocarbamol 500 Mg Tablet) 500 mg PO Q6HP PRN PRN Reason: Muscle Spasm Last Admin: 12/23/21 13:03 Dose: 500 mg Documented by: Multivitamins/Minerals (Vit A,C & E/Lutein/Minerals Tablet) 1 tab PO DAILY [facility] Last Admin: 12/23/21 09:06 Dose: 1 tab Documented by: Ondansetron HCl (Ondansetron 4 Mg/2 Ml Vial) 4 mg IV Q6HP PRN PRN Reason: Nausea And Vomiting Senna (Sennosides 1 Tablet) 2 tab PO HS [facility] Last Admin: 12/23/21 00:17 Dose: Not Given Documented by: Sodium Chloride (0.9 % Sodium Chloride 10 Ml Syringe) 10 ml IV Q8 [facility] Last Admin: 12/23/21 05:16 Dose: Not Given Documented by: Trazodone HCl (Trazodone Hcl 50 Mg Tablet) 25 mg PO HSP PRN PRN Reason: Insomnia A/P Narrative A/P Narrative: Assessment and Plans: *Left hip fracture, closed, initial encounter: s/p ORIF (12/22) -Start Eliquis tonight -[place] PRN moderate pain -Physical therapy *h/o osteoarthritis: *Hypothyroidism: Continue thyroid replacement therapy *ppx: Eliquis 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
[2021-12-23] MEDS: HYDROcodone/APAP 5/325MG TABLET PO PRN (14:14)
[2021-12-23] MEDS: APIXABAN 5 MG TABLET PO SCH (20:29)
[2021-12-24] MEDS: 0.9 % SODIUM CHLORIDE 1,000 ML IV SCH ×3 (04:09→08:46)
[2021-12-24] MEDS: LACTATED RINGERS 1,000 ML IV SCH (04:09)
[2021-12-24] MEDS: 0.9 % SODIUM CHLORIDE 10 ML SYRINGE IV SCH ×3 (04:09→20:46)
[2021-12-24] MEDS: HYDROcodone/APAP 5/325MG TABLET PO PRN ×3 (06:24→20:44)
[2021-12-24] MEDS: LEVOTHYROXINE 88 MCG TABLET PO SCH (07:12)
--- NOTE | 2021-12-24 07:58 | Internal Med Progress Note ---
SUBJECTIVE Subjective Patient information: Note initiated : 12/24/21 at 7:56 am Service Date, if different from initiated Date: [] Patient: Smita Munson 86 y/o F admitted on 12/22/21 for Left Femur Fracture. Chief Complaint: [] Interval history: History of present illness: Ms. Munson is a 86 year old F history of ostial myelitis, presenting with 4 with a left hip fracture. Earlier this afternoon when she was doing yard work in her garden, she misstepped and lost her balance and fell landing forward. She denies any chest pain or shortness of breath or palpitations. She denies any loss of consciousness. She is complaining of 6 out of 10, constant, sharp and throbbing pain of her left knee with radiations to the left thigh. Patient is not on any anticoagulants or antiplatelets. She was brought to outside ER where imaging was performed and suggested a left hip fracture. Admission request was made due to bed availability and availability of orthopedic surgeons. Patient will be taken to the OR by Dr. Munson orthopedic surgeons later this evening. 12/23: s/p left hip ORIF by Dr. Munson last night, patient tolerated the surgery well. She currently denies any pain. She has been passing gas but denies any bowel movement so far. Pending evaluation and treatment with physical therapy. Restart Jourdan pedraza. 12/24 Patient slept well last night. Awaiting follow-up labs today. Working with PT today. Patient has a sore throat but otherwise no other complaints. Review of Systems: denies headache/fever/chills/nausea/vomiting/chest or abdominal pain/cough/dyspnea/diarrhea. Otherwise see above. Constitutional Vitals: Vital Signs Temp Pulse Resp BP Pulse Ox 97.5 F 89 16 99/77 92 12/24/21 04:14 12/24/21 04:14 12/24/21 04:14 12/24/21 04:14 12/24/21 04:14 Period Temp Pulse Resp BP Sys/Keys Pulse Ox Last 24 Hr 97.5 F-99.4 F 88-102 16-18 78-118/56-77 92-95 Intake and Output 12/23/21 12/24/21 12/24/21 21:59 05:59 13:59 Intake Total 1000 1175 Output Total 525 1400 Balance 475 -225 Weight 92.986 kg Intake & Output: Intake & Output 12/23/21 12/24/21 12/24/21 21:59 05:59 13:59 Intake Total 1000 1175 Output Total 525 1400 Balance 475 -225 Weight 92.986 kg Intake: IV 1000 975 Sodium Chloride 0.9% 1,000 ml @ 1000 975 100 mls/hr IV .Q10H [facility] Rx#: [id number] Oral 200 Output: Urine Catheter Amount 525 1400 Other: Meal Dinner Percent of Meal Consumed 100% Feeding Ability Independent Urine Appearance Clear Clear Uretheral ([place]) Clear Urine Color Pale Pale Uretheral ([place]) Pale Urine Odor Normal Exam: General: Alert, Awake, No acute Distress, obese Eyes/N/T: EOMI, Head/Neck: neck supple, CV: RRR, No murmurs, Pulm: Clear b/l, no wheezing/rhonchi/rales Abd: soft, nontender, +BS x4 Ext: no clubbing/cyanosis/edema Neuro: Alert, no focal deficits, moves all extremities, Skin: warm/dry OBJ DATA Labs CBC & Chem 7: 12/23/21 05:13 12/23/21 05:13 Labs: Abnormal Lab Results 12/23/21 12/23/21 05:13 05:13 WBC 16.2 H MCHC 30.6 L MPV 11.0 H Neut % (Auto) 89.8 H Lymph % (Auto) 4.0 L Lymph # (Auto) 0.64 L [place] # (Auto) 0.97 H Absolute Neutrophils 14.56 H Glucose 168 H Calcium 8.2 L Meds: Medications Acetaminophen (Acetaminophen 325 Mg Tablet) 650 mg PO Q6HP PRN; Protocol PRN Reason: Per Pain Protocol/Fever > 101 Hydrocodone Bitart/Acetaminophen (Hydrocodone/Apap 5/325mg Tablet) 0 tab PO Q4HP PRN; Protocol PRN Reason: Per Pain Protocol Last Admin: 12/24/21 06:24 Dose: 2 tab Documented by: Albuterol/Ipratropium (Ipratropium/Albuterol 3 Ml Ampul.Neb) 3 ml NEB Q4HRT PRN PRN Reason: Wheezing Apixaban (Apixaban 5 Mg Tablet) 2.5 mg PO BID [facility] Last Admin: 12/23/21 20:29 Dose: 2.5 mg Documented by: Docusate Sodium (Docusate Sodium 100 Mg Capsule) 100 mg PO BID [facility] Last Admin: 12/23/21 20:29 Dose: 100 mg Documented by: Hydralazine HCl (Hydralazine 20 Mg/Ml Vial) 10 mg IV Q4-6HP PRN PRN Reason: Hypertension Hydromorphone HCl (Hydromorphone 1 Mg/Ml Syringe) 1 mg IV Q2HP PRN; Protocol PRN Reason: Per Pain Protocol Sodium Chloride (Sodium Chloride 0.9%) 1,000 mls @ 100 mls/hr IV .Q10H [facility] Last Admin: 12/24/21 05:32 Dose: 100 mls/hr Documented by: Lactated Ringer's (Lactated Ringers) 1,000 mls @ 75 mls/hr IV .[id number] [facility] Last Admin: 12/24/21 04:09 Dose: Not Given Documented by: Levothyroxine Sodium (Levothyroxine 88 Mcg Tablet) 88 mcg PO QAMAC [facility] Last Admin: 12/24/21 07:12 Dose: 88 mcg Documented by: Meloxicam (Meloxicam 7.5 Mg Tablet) 15 mg PO DAILY [facility] Last Admin: 12/23/21 09:06 Dose: 15 mg Documented by: Methocarbamol (Methocarbamol 500 Mg Tablet) 500 mg PO Q6HP PRN PRN Reason: Muscle Spasm Last Admin: 12/23/21 13:03 Dose: 500 mg Documented by: Multivitamins/Minerals (Vit A,C & E/Lutein/Minerals Tablet) 1 tab PO DAILY [facility] Last Admin: 12/23/21 09:06 Dose: 1 tab Documented by: Ondansetron HCl (Ondansetron 4 Mg/2 Ml Vial) 4 mg IV Q6HP PRN PRN Reason: Nausea And Vomiting Senna (Sennosides 1 Tablet) 2 tab PO HS [facility] Last Admin: 12/23/21 20:29 Dose: 2 tab Documented by: Sodium Chloride (0.9 % Sodium Chloride 10 Ml Syringe) 10 ml IV Q8 [facility] Last Admin: 12/24/21 04:09 Dose: Not Given Documented by: Trazodone HCl (Trazodone Hcl 50 Mg Tablet) 25 mg PO HSP PRN PRN Reason: Insomnia A/P Narrative A/P Narrative: Assessment and Plans: *Left hip fracture, closed, initial encounter: s/p ORIF (12/22) -Eliquis per ortho -[place] PRN moderate pain -Physical therapy *h/o osteoarthritis: *Hypothyroidism: Continue thyroid replacement therapy *Obesity: BMI 34 *ppx: Eliquis 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
[2021-12-24] MEDS: APIXABAN 5 MG TABLET PO SCH ×2 (08:41→20:45)
[2021-12-24] MEDS: MELOXICAM 7.5 MG TABLET PO SCH (08:43)
[2021-12-24] MEDS: VIT A,C & E/LUTEIN/MINERALS TABLET PO SCH (08:43)
[2021-12-24] MEDS: DOCUSATE SODIUM 100 MG CAPSULE PO SCH ×2 (08:43→20:46)
[2021-12-24 09:28] LABS: ALT/SGPT 7 U/L (<40); AST/SGOT 17 U/L (<32); Albumin/Globulin Ratio 1.8 (1.0-2.3); Alkaline Phosphatase 48 U/L (39-117); Bilirubin,Direct < 0.2 mg/dL (0-0.3); Bilirubin,Total 0.3 mg/dL (0.1-1.0); Blood Urea Nitrogen 10 mg/dL (8-23); Calcium 7.6 mg/dL (8.6-10.4); Carbon Dioxide 25 mmol/L (22-30); Chloride 109 mmol/L (96-108); Globulin 1.7 gm/dL (2.2-3.7); Glomerular Filtration Rate 81; Glucose 101 mg/dL (70-105); Lactate Dehydrogenase 175 U/L (135-225); Phosphorous 2.5 mg/dL (2.5-4.5); Triglycerides 96 mg/dL (<150); Uric Acid 4.2 mg/dL (2.5-8.0)
[2021-12-24 09:31] LABS: Basophils # (Auto) 0.05 K/mcL (0.00-0.30); Basophils % (Auto) 0.5 % (0.0-2.0); Eosinophils # (Auto) 0.08 K/mcL (0.00-0.70); Eosinophils % (Auto) 0.9 % (0.0-7.0); Hematocrit 28.5 % (34.1-44.9); Hemoglobin 8.8 g/dL (11.2-15.7); Lymphocytes # (Auto) 1.15 K/mcL (1.50-4.80); Lymphocytes % (Auto) 12.6 % (15.5-49.0); Mean Cell Volume 95.6 fL (80.0-100.0); Mean Corpuscular HGB Conc 30.9 g/dL (31.0-36.0); Mean Platelet Volume 11.5 fL (7.4-10.4); Monocytes % (Auto) 10.9 % (1.0-12.0); Neutrophils % (Auto) 75.1 % (38.0-78.0); Platelet Count 140 K/mcL (140-440); RBC 2.98 M/mcL (3.59-5.38); WBC 9.1 K/mcL (4.5-11.0)
[2021-12-24] MEDS ORDERED: HYDROmorphone 1 MG/ML SYRINGE IV PRN (12:29)
[2021-12-24] MEDS: SENNOSIDES 1 TABLET PO SCH (20:45)
[2021-12-25] MEDS: HYDROcodone/APAP 5/325MG TABLET PO PRN ×3 (04:38→14:25)
[2021-12-25] MEDS: 0.9 % SODIUM CHLORIDE 10 ML SYRINGE IV SCH ×3 (04:38→20:20)
[2021-12-25] MEDS: LEVOTHYROXINE 88 MCG TABLET PO SCH (07:20)
--- NOTE | 2021-12-25 07:39 | Internal Med Progress Note ---
SUBJECTIVE Subjective Patient information: Note initiated : 12/25/21 at 7:39 am Service Date, if different from initiated Date: [] Patient: Smita Munson 86 y/o F admitted on 12/22/21 for Left Femur Fracture. Chief Complaint: [] Interval history: History of present illness: Ms. Munson is a 86 year old F history of ostial myelitis, presenting with 4 with a left hip fracture. Earlier this afternoon when she was doing yard work in her garden, she misstepped and lost her balance and fell landing forward. She denies any chest pain or shortness of breath or palpitations. She denies any loss of consciousness. She is complaining of 6 out of 10, constant, sharp and throbbing pain of her left knee with radiations to the left thigh. Patient is not on any anticoagulants or antiplatelets. She was brought to outside ER where imaging was performed and suggested a left hip fracture. Admission request was made due to bed availability and availability of orthopedic surgeons. Patient will be taken to the OR by Dr. Munson orthopedic surgeons later this evening. 12/23: s/p left hip ORIF by Dr. Munson last night, patient tolerated the surgery well. She currently denies any pain. She has been passing gas but denies any bowel movement so far. Pending evaluation and treatment with physical therapy. Restart Jourdan pedraza. 12/24 Patient slept well last night. Awaiting follow-up labs today. Working with PT today. Patient has a sore throat but otherwise no other complaints. 12/25 Sitting up in chair eating breakfast. No overnight event or new complaints. Continue with physical therapy. Placement for Sunday likely Review of Systems: denies headache/fever/chills/nausea/vomiting/chest or abdominal pain/cough/dyspnea/diarrhea. Otherwise see above. Constitutional Vitals: Vital Signs Temp Pulse Resp BP Pulse Ox 97.8 F 83 16 127/69 96 12/25/21 06:56 12/25/21 06:56 12/25/21 06:56 12/25/21 06:56 12/25/21 06:56 Period Temp Pulse Resp BP Sys/Keys Pulse Ox Last 24 Hr 97.6 F-99.4 F 83-95 -18 100-127/55-74 93-96 Intake and Output 0612/25/21 12/25/21 21:59 05:59 13:59 Intake Total 1040 150 Output Total 900 1700 Balance 140 -1550 Weight 88.723 kg Intake & Output: Intake & Output 12/24/21 12/25/21 12/25/21 21:59 05:59 13:59 Intake Total 1040 150 Output Total 900 1700 Balance 140 -1550 Weight 88.723 kg Intake: Oral 1040 150 Output: Urine Catheter Amount 900 1700 Other: Meal Dinner Percent of Meal Consumed 100% Urine Appearance Clear Clear Urine Color Bright Yellow Pale Urine Odor Normal Normal Exam: General: Alert, Awake, No acute Distress, obese Eyes/N/T: EOMI, Head/Neck: neck supple, CV: RRR, No murmurs, Pulm: Clear b/l, no wheezing/rhonchi/rales Abd: soft, nontender, +BS x4 Ext: no clubbing/cyanosis/edema Neuro: Alert, no focal deficits, moves all extremities, Skin: warm/dry OBJ DATA Labs CBC & Chem 7: 12/24/21 08:08 12/24/21 08:08 Labs: Abnormal Lab Results 12/24/21 12/24/21 12/23/21 08:08 08:08 05:13 WBC RBC 2.98 L Hgb 8.8 L Hct 28.5 L MCHC 30.9 L MPV 11.5 H Neut % (Auto) Lymph % (Auto) 12.6 L Lymph # (Auto) 1.15 L [place] # (Auto) 1.00 H Absolute Neutrophils Chloride 109 H Anion Gap 5.0 L Glucose 168 H Calcium 7.6 L 8.2 L Total Protein 4.7 L Albumin 3.0 L Globulin 1.7 L 12/23/21 05:13 WBC 16.2 H RBC Hgb Hct MCHC 30.6 L MPV 11.0 H Neut % (Auto) 89.8 H Lymph % (Auto) 4.0 L Lymph # (Auto) 0.64 L [place] # (Auto) 0.97 H Absolute Neutrophils 14.56 H Chloride Anion Gap Glucose Calcium Total Protein Albumin Globulin Meds: Medications Acetaminophen (Acetaminophen 325 Mg Tablet) 650 mg PO Q6HP PRN; Protocol PRN Reason: Per Pain Protocol/Fever > 101 Hydrocodone Bitart/Acetaminophen (Hydrocodone/Apap 5/325mg Tablet) 0 tab PO Q4HP PRN; Protocol PRN Reason: Per Pain Protocol Last Admin: 12/25/21 04:38 Dose: 1 tab Documented by: Albuterol/Ipratropium (Ipratropium/Albuterol 3 Ml Ampul.Neb) 3 ml NEB Q4HRT PRN PRN Reason: Wheezing Apixaban (Apixaban 5 Mg Tablet) 2.5 mg PO BID [facility] Last Admin: 12/24/21 20:45 Dose: 2.5 mg Documented by: Docusate Sodium (Docusate Sodium 100 Mg Capsule) 100 mg PO BID [facility] Last Admin: 12/24/21 20:46 Dose: 100 mg Documented by: Hydralazine HCl (Hydralazine 20 Mg/Ml Vial) 10 mg IV Q4-6HP PRN PRN Reason: Hypertension Hydromorphone HCl (Hydromorphone 1 Mg/Ml Syringe) 0.5 - 1 mg IV Q2HP PRN; Protocol PRN Reason: Per Pain Protocol Last Admin: 12/24/21 12:46 Dose: 0.5 mg Documented by: Levothyroxine Sodium (Levothyroxine 88 Mcg Tablet) 88 mcg PO QAMAC [facility] Last Admin: 12/25/21 07:20 Dose: 88 mcg Documented by: Meloxicam (Meloxicam 7.5 Mg Tablet) 15 mg PO DAILY [facility] Last Admin: 12/24/21 08:43 Dose: 15 mg Documented by: Methocarbamol (Methocarbamol 500 Mg Tablet) 500 mg PO Q6HP PRN PRN Reason: Muscle Spasm Last Admin: 12/23/21 13:03 Dose: 500 mg Documented by: Multivitamins/Minerals (Vit A,C & E/Lutein/Minerals Tablet) 1 tab PO DAILY [facility] Last Admin: 12/24/21 08:43 Dose: 1 tab Documented by: Ondansetron HCl (Ondansetron 4 Mg/2 Ml Vial) 4 mg IV Q6HP PRN PRN Reason: Nausea And Vomiting Senna (Sennosides 1 Tablet) 2 tab PO HS [facility] Last Admin: 12/24/21 20:45 Dose: 2 tab Documented by: Sodium Chloride (0.9 % Sodium Chloride 10 Ml Syringe) 10 ml IV Q8 [facility] Last Admin: 12/25/21 04:38 Dose: 10 ml Documented by: Trazodone HCl (Trazodone Hcl 50 Mg Tablet) 25 mg PO HSP PRN PRN Reason: Insomnia A/P Narrative A/P Narrative: Assessment and Plans: *Left hip fracture, closed, initial encounter: s/p ORIF (12/22) -Eliquis per ortho -[place] PRN moderate pain -Physical therapy *h/o osteoarthritis: *Hypothyroidism: Continue thyroid replacement therapy *Obesity: BMI 34 *ppx: Eliquis per ortho 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
[2021-12-25] MEDS: VIT A,C & E/LUTEIN/MINERALS TABLET PO SCH (09:00)
[2021-12-25] MEDS: MELOXICAM 7.5 MG TABLET PO SCH (09:00)
[2021-12-25] MEDS: APIXABAN 5 MG TABLET PO SCH ×2 (09:01→20:20)
[2021-12-25] MEDS: DOCUSATE SODIUM 100 MG CAPSULE PO SCH ×2 (09:01→20:20)
--- NOTE | 2021-12-25 10:02 | Discharge Summary ---
Discharge Provider Provider IMPORTANT FOLLOW-UP INFORMATION FOR PCP: Patient information: Note initiated : 12/25/21 at 10:01 am Service Date, if different from initiated Date: [] Patient: Smita Munson 86 y/o F admitted on 12/22/21 for Left Femur Fracture. Chief Complaint: [] Date of admission: 12/22/21 16:52 Discharge date: 12/27/21 Consults: 12/22/21 17:31 Consult to Physician [CONS] Routine Comment: Consulting Provider: Mac Munson Reason For Exam: Physician to Consult COURSE Hospital Course Hospital course: History of present illness: Ms. Munson is a 86 year old F history of ostial myelitis, presenting with 4 with a left hip fracture. Earlier this afternoon when she was doing yard work in her garden, she misstepped and lost her balance and fell landing forward. She denies any chest pain or shortness of breath or palpitations. She denies any loss of consciousness. She is complaining of 6 out of 10, constant, sharp and throbbing pain of her left knee with radiations to the left thigh. Patient is not on any anticoagulants or antiplatelets. She was brought to outside ER where imaging was performed and suggested a left hip fracture. Admission request was made due to bed availability and availability of orthopedic surgeons. Patient will be taken to the OR by Dr. Munson orthopedic surgeons later this evening. 12/23: s/p left hip ORIF by Dr. Munson last night, patient tolerated the surgery well. She currently denies any pain. She has been passing gas but denies any bowel movement so far. Pending evaluation and treatment with physical therapy. Restart Eliquis tonight. 12/24 Patient slept well last night. Awaiting follow-up labs today. Working with PT today. Patient has a sore throat but otherwise no other complaints. 12/25 Sitting up in chair eating breakfast. No overnight event or new complaints. Continue with physical therapy. Placement for Sunday likely 12/27 Patient with urinary retention, Sanches placed. Patient will maintain a follow-up with urology. Assessment and Plans: *Left hip fracture, closed, initial encounter: s/p ORIF (12/22) -Eliquis per ortho -Tullos PRN moderate pain -Physical therapy *h/o osteoarthritis: *Hypothyroidism: Continue thyroid replacement therapy *Obesity: BMI 34 *Urinary retention: Sanches placed, follow-up with urology Discharge diagnosis: Left hip fracture osteoarthritis hypothyroidism obesity, urinary retention Time Spent with Patient Time attestation: Total time spent providing and/or coordinating discharge services: Time spent: Greater than 30 minutes EXAM Constitutional Vitals: Temp Pulse Resp BP Pulse Ox 97.8 F 83 16 127/69 96 12/25/21 06:56 12/25/21 06:56 12/25/21 06:56 12/25/21 06:56 12/25/21 08:00 Discharge Plan Patient/Caregiver Discharge Instructions Activity: as per physical therapy Diet: Regular Diet Instructions: Hydrocodone/Acetaminophen (By mouth), Cyclobenzaprine (By mouth), Methocarbamol (By mouth), Apixaban (By mouth), ORIF of Hip Fracture (DC) Activity Restrictions/Additional Instructions: - Toe touch/foot flat weight bearing - Range of motion 0-90 degrees - Wear your hinged knee brace while mobilizing, ok to remove when sleeping or sitting - Keep your dressing clean and dry until your follow up appointment. - Ice as needed for pain - Eliquis is to help prevent blood clots Prescriptions: New Eliquis 5 mg Tablet 2.5 mg PO BID Qty: 66 0RF methocarbamol 500 mg Tablet 500 mg PO Q6HP PRN (Reason: Muscle Spasm) Qty: 20 0RF hydrocodone-acetaminophen 5-325 mg Tablet 1 - 2 tab PO Q4HP PRN (Reason: Per Pain Protocol) Qty: 60 0RF docusate sodium 100 mg Capsule 100 mg PO BID Qty: 60 0RF polyethylene glycol 3350 [Miralax] 17 gram powder in packet 17 g PO QDAY PRN (Reason: constipation) Qty: 14 0RF cyclobenzaprine 5 mg tablet 5 mg PO TID PRN (Reason: muscle spasm) Qty: 20 0RF Continued levothyroxine 88 mcg 88 mcg PO DAILY 0RF Vision Clear 1 tab PO DAILY 0RF meloxicam 15 mg 15 mg PO DAILY 0RF Follow Up Plan Follow up with: Parmjit Lara MD [Physician] - (The office will contact you to schedule an appointment.) Zenon Navarro MD [Physician] - Ghassan Cárdenas PA-C [Physician Employment Office Clerk] - (10-13 days for post operative care) Patient Disposition: Home, Self-Care Prognosis: Fair Rehab Potential: Fair I certify that the patient requires SNF services: Yes Overall status at discharge: patient is progressing back to baseline Discharge Orders: Discharge Order (Routine); Ordered 12/27/21 Ordered By: Yasmani Caruso [facility] VTE Deep Vein Thrombosis/Pulmonary Embolism Present on Admission: No
[2021-12-25] MEDS: SENNOSIDES 1 TABLET PO SCH (20:20)
[2021-12-26] MEDS: HYDROcodone/APAP 5/325MG TABLET PO PRN ×2 (02:42→21:45)
[2021-12-26] MEDS: 0.9 % SODIUM CHLORIDE 10 ML SYRINGE IV SCH ×3 (05:43→21:46)
[2021-12-26] MEDS: LEVOTHYROXINE 88 MCG TABLET PO SCH (07:04)
[2021-12-26] MEDS: MELOXICAM 7.5 MG TABLET PO SCH (08:24)
[2021-12-26] MEDS: APIXABAN 5 MG TABLET PO SCH ×2 (08:24→21:44)
[2021-12-26] MEDS: VIT A,C & E/LUTEIN/MINERALS TABLET PO SCH (08:24)
[2021-12-26] MEDS: DOCUSATE SODIUM 100 MG CAPSULE PO SCH ×2 (08:24→21:44)
--- NOTE | 2021-12-26 13:28 | EKG ---
[facility] Test Date: 2021-12-22 Pat Name: Smita Munson Department: [facility] Room: 125 Gender: Female Tube Buffer: : 1935 Requested By: Barrett Toribio Order Number: [id number] Reading MD: Christian Amin M.D. Measurements Intervals [place] Rate: 92 P: 35 ID: [id number] QRS: 1 QRSD: 96 T: 0 QT: 379 QTc: 469 Interpretive Statements Sinus rhythm Electronically Signed On 12-26-2021 13:28:15 PDT by Christian Amin M.D. /[id number]
[2021-12-26] MEDS ORDERED: POLYETHYLENE GLYCOL 3350 17 GM PACKET PO PRN (18:35)
[2021-12-26] MEDS ORDERED: POLYETHYLENE GLYCOL 3350 17 GM PACKET ONE (18:54)
[2021-12-26] MEDS: SENNOSIDES 1 TABLET PO SCH (21:44)
[2021-12-27] MEDS: 0.9 % SODIUM CHLORIDE 10 ML SYRINGE IV SCH (05:51)
[2021-12-27] MEDS: APIXABAN 5 MG TABLET PO SCH (08:29)
[2021-12-27] MEDS: VIT A,C & E/LUTEIN/MINERALS TABLET PO SCH (08:29)
[2021-12-27] MEDS: MELOXICAM 7.5 MG TABLET PO SCH (08:29)
[2021-12-27] MEDS: LEVOTHYROXINE 88 MCG TABLET PO SCH (08:29)
[2021-12-27] MEDS: DOCUSATE SODIUM 100 MG CAPSULE PO SCH (08:30)
[2021-12-27 11:27] LABS: Appearance,Urine HAZY (Clear); Bilirubin,Urine Negative (Negative); Color,Urine YELLOW; Culture Indicated,Urine No; Glucose,Urine (UA) Negative (Negative); Ketones,Urine Negative (Negative); Leukocyte Esterase,Urine Negative /uL (Negative); Mucus,Urine FEW /hpf; Nitrate,Urine Negative (Negative); Protein,Urine 30 mg/dL (Negative); Urine Blood Negative (Negative); Urine Hyaline Cast 3 /lph (0-2); Urine RBC 2 /hpf (0-3); Urine Squamous Epithelial Cell 0 /hpf (0-4); Urine WBC 3 /hpf (0-4); Urobilinogen,Urine Negative
== END 2021-12-27 13:15 | disposition home or self-care (01) | DRG 482 ==
LOC: MEDSUR 16:52
PROVIDERS: ADMIT Orthopaedic Surgery; ATTEND Internal Medicine